=== PATIENT | female | born 1955 | race Caucasian/White ===

== ENCOUNTER 2018-08-04 01:43 | Inpatient (IN) ==
[2018-08-04] MEDS ORDERED: ceFAZolin 2 GM Premix Inj 2 GM/50 ML PIGGYBACK IV.SIG ONE (01:46)
[2018-08-04 02:05] LABS: Baso % (Auto) 0.4 % (0.0-2.0); Eos # (Auto) 0.2 th/mm3 (0.0-0.4); Eos % (Auto) 3.1 % (0.0-4.0); Hematocrit 41.3 % (35.0-46.0); Hemoglobin 14.1 gm/dL (11.6-15.3); Lymph % (Auto) 54.4 % (9.0-44.0); Mean Corpuscular Hemoglobin 33.2 pg (27.0-34.0); Mean Corpuscular Volume 97.7 fL (80.0-100.0); Mean Platelet Volume 8.9 fL (7.0-11.0); Mono # (Auto) 0.4 th/mm3 (0.0-0.9); Mono % (Auto) 5.6 % (0.0-8.0); Neut # (Auto) 2.7 th/mm3 (1.8-7.7); Neut % (Auto) 36.5 % (16.0-70.0); Platelet Count 220 th/mm3 (150-450); Red Blood Count 4.23 mil/mm3 (4.00-5.30); Red Cell Distribution Width 12.9 % (11.6-17.2); White Blood Count 7.4 th/mm3 (4.0-11.0)
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
[2018-08-04 02:16] LABS: Activated Partial Thrombo Time 23.6 sec (23.4-31.7)
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
[2018-08-04] MEDS ORDERED: Morphine Sulfate Inj 2 MG/ML Vial IV.PUSH PRN (05:35)
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
[2018-08-04] MEDS: Pantoprazole Inj 40 MG Vial IV.PUSH SCH (06:03)
[2018-08-04] MEDS ORDERED: ceFAZolin Inj 2,000 MG in Sodium Chlor 0.9% Inj 80 ML IV.SIG SCH (07:00)
[2018-08-04] MEDS: Sod Chloride 0.9% Inj 1,000 ML IV.CONT SCH ×2 (07:24→21:25)
[2018-08-04] MEDS: ceFAZolin 2 GM Premix Inj 2 GM/50 ML PIGGYBACK IV.SIG SCH ×3 (08:43→23:16)
[2018-08-04] MEDS: Senna/Docusate Sodium 8.6/50 MG Tablet PO SCH ×2 (08:43→22:07)
[2018-08-04] MEDS: hydroCHLOROthiazide 25 MG Tablet PO SCH (15:07)
[2018-08-04] MEDS: Lisinopril 10 MG Tablet PO SCH (15:07)
[2018-08-04] MEDS ORDERED: Bupivacaine PF 0.5% Inj 30 ML Vial ONE (16:21)
[2018-08-04] MEDS ORDERED: Lidocaine PF 1% Inj 5 ML Syringe OTHER ONE (17:12)
[2018-08-04] MEDS ORDERED: Phenylephrine/NS 1000 MCG/10ML Syringe IV.PUSH ONE (17:12)
[2018-08-04] MEDS ORDERED: Normosol-R pH 7.4 Inj 1,000 ML IV.CONT ONE (17:12)
[2018-08-04] MEDS ORDERED: Morphine Inj 4 MG/ML Vial ONE (19:20)
[2018-08-04] MEDS ORDERED: fentaNYL Citrate Inj 100 MCG/2 ML Ampul ONE (19:20)
[2018-08-04] MEDS ORDERED: Bupivacaine/Epinephrine 0.5% Inj 50 ML Vial ONE (19:53)
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
[2018-08-04] MEDS ORDERED: *morphine SULFATE 4 MG/ML PERIprocedure ONLY ONE (21:21)
[2018-08-05] MEDS: Sod Chloride 0.9% Inj 1,000 ML IV.CONT SCH (02:53)
[2018-08-05 05:15] LABS: Baso % (Auto) 0.1 % (0.0-2.0); Hematocrit 35.2 % (35.0-46.0); Hemoglobin 12.1 gm/dL (11.6-15.3); Lymph # (Auto) 0.8 th/mm3 (1.0-4.8); Lymph % (Auto) 9.8 % (9.0-44.0); Mean Corpuscular HGB Conc 34.5 % (32.0-36.0); Mean Corpuscular Hemoglobin 33.5 pg (27.0-34.0); Mean Platelet Volume 8.9 fL (7.0-11.0); Mono # (Auto) 0.4 th/mm3 (0.0-0.9); Mono % (Auto) 5.1 % (0.0-8.0); Neut # (Auto) 6.8 th/mm3 (1.8-7.7); Platelet Count 170 th/mm3 (150-450); Red Blood Count 3.63 mil/mm3 (4.00-5.30); Red Cell Distribution Width 12.8 % (11.6-17.2)
[2018-08-05 05:36] LABS: Albumin 3.3 g/dL (3.4-5.0); Anion Gap 11 meq/L (5-15); Aspartate Aminotransferase 17 U/L (15-37); Blood Urea Nitrogen 8 mg/dL (7-18); Calcium 7.8 mg/dL (8.5-10.1); Carbon Dioxide 24.3 meq/L (21.0-32.0); Chloride 106 meq/L (98-107); Glomerular Filtration Rate 73 mL/min (>89); Glucose,Random 143 mg/dL (74-106); Potassium 3.8 meq/L (3.5-5.1); Sodium 141 meq/L (136-145)
[2018-08-05 05:38] LABS: Alanine Aminotransferase 18 U/L (10-53)
[2018-08-05 05:39] LABS: Alkaline Phosphatase 59 U/L (45-117); Total Protein 6.3 g/dL (6.4-8.2)
[2018-08-05] MEDS: Pantoprazole Inj 40 MG Vial IV.PUSH SCH (06:31)
[2018-08-05] MEDS: Senna/Docusate Sodium 8.6/50 MG Tablet PO SCH (08:36)
[2018-08-05] MEDS: Lisinopril 10 MG Tablet PO SCH (08:42)
[2018-08-05] MEDS: hydroCHLOROthiazide 25 MG Tablet PO SCH (08:42)
[2018-08-05 09:42] VITALS: RESP 18
[2018-08-05 09:50] VITALS: BP 100/57; PULSE 68; TEMP 98.2; O2SAT 95
--- NOTE | 2018-08-05 12:42 | ECG ---
Date Performed: 08/04/2018 Time Performed: 14:55:04 PTAGE: 89 years EKG: Sinus rhythm with PAC(s). ST junctional depression is nonspecific Borderline ECG NO PREVIOUS TRACING DOCTOR: Flaco Turner Interpretating Date/Time 08/05/2018 12:40:23
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
== END 2018-08-05 13:28 | disposition home or self-care (01) ==
LOC: NEDA 01:43 → NEPI 01:43 → EDBD 05:35 → HCIS 07:27 → N06 16:59
PROVIDERS: ADMIT Surgery; ATTEND Surgery